=== PATIENT | female | born 1980 | race Caucasian/White ===

== ENCOUNTER 2025-04-12 14:55 | Outpatient (CLI) | payer OTHER, SELFPAY ==
--- NOTE | ~2025-04-12 | MM_ITS ---
EXAMINATION: MM screening denise BI w nic HISTORY: Screening TECHNIQUE: Craniocaudal and mediolateral oblique 3-D tomosynthesis images were obtained and synthetic 2-D images were generated. CAD analysis was submitted and interpreted. COMPARISON: No prior mammogram is available for comparison at this institution. BREAST PARENCHYMAL COMPOSITION: Dense: The breasts are extremely dense, which lowers the sensitivity of mammography. FINDINGS: There is no evidence of suspicious mass, calcification, or architectural distortion to sugg est malignancy in either breast. There has been no suspicious interval change. IMPRESSION: 1. No mammographic evidence of malignancy. 2. Recommend routine screening mammography in one year. BI-RADS Category 1: Negative Reviewed, dictated and finalized at location B.
--- OUTSIDE RECORDS SUMMARY | 2025-04-12 14:59 | XMS_ITS | Clinical Summary ---
Author Organization [facility] Address [address] [place] [address] Care Team Providers Care Ict Business Analyst Name Role Phone Unavailable Primary Care Provider Unavailabl e Social History Tobacco Use Types Packs/Day Years Used Date Smoking Tobacco: Never Assessed Comments Unknown Sex and Gender Information Value Date Recorded Sex Assigned at Not on file Legal Sex Female 10:32 AM [facility] Gender Identity Not on file Sexual Orientation Not on file Plan of Treatment Not on file Insurance [employer]
--- OUTSIDE RECORDS SUMMARY | 2025-04-12 14:59 | XMS_ITS | Encounter Summary ---
Author Organization [facility] Address [address] [place] [address] Care Team Providers Care Spot Man Name Role Phone Unavailable Primary Care Provider Unavailabl e Encounter Details Date Type Department Care Team (Latest Contact Info) Description 08/16/2021 [facility] BIOMETRIC [facility] ADM Social History Tobacco Use Types Packs/Day Years Used Date Smoking Tobacco: Never Assessed Comments Unknown Sex and Gender Information Value Date Recorded Sex Assigned at Not on file Legal Sex Female 10:32 AM [facility] Gender Identity Not on file Sexual Orientation Not on file documented as of this encounter Plan of Treatment Not on file documented as of this encounter Visit Diagnoses Not on filedocumented in this encounter
--- OUTSIDE RECORDS SUMMARY | 2025-04-12 14:59 | XMS_ITS | Clinical Summary ---
Author Organization [facility] Medical [facility] 2 Address [address] [facility] [place] [address] Care Team Providers Care Structural Worker Name Role Phone Najma Gordon MD Primary Care Provider + Faviola Grant MD Unavailable Najma Perrin MD Unavailable [phone] Allergies No known active allergies Medications aspirin 81 mg tablet Take 1 tablet (81 mg total) by mouth nightly 8 Active diphenhydrAMINE (BENADRYL) 25 mg capsule Take 1 tablet/capsule (25 mg total) by mouth every 4 hours as needed 3 Active ibuprofen (ADVIL,MOTRIN) 600 mg tablet Take 1 tablet (600 mg total) by mouth every 6 hours as needed 3 Active loratadine (CLARITIN) 10 mg tabletIndicatio ns:Allergic Rhinitis Take 1 tablet (10 mg total) by mouth daily as needed for allergies seasonal Active triamcinolone (NASACORT) 55 mcg nasal inhaler daily Active Vuity 1.25 % drops ophthalmic solution 2 Active amoxicillin 500 mg tablet/capsule TAKE 4 CAPSULES BY MOUTH 1 HOUR BEFORE DENTAL APPOINTMENT 4 tablet/capsu le 4 Active Active Problems Problem Noted Date Diagnosed Date Nasolacrimal duct obstruction, acquired, 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 Trejo at age 27 years. TTE from 01/2024 with mild to moderate [place] and peak gradient=20 mm Hg. She is asymptomatic with a good functional capacity. Will continue routine monitoring with echocardiograms. Would like to do bi-annual echos due to trejo. Can reconsider at 1 year follow up. 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 Asymptomatic with a good functional capacity. Will continue routine monitoring with echocardiograms. Would like to do bi-annual echos due to trejo. Can reconsider at 1 year follow up. Encounters Date Type Department Care Team Description 03/11/2025 8:30 AM CDT Office Visit [facility] Cardiology [address] [facility] 8th [place] [address] [place] [address] Elier Cotto MD Nonrheumatic pulmonary valve stenosis (Primary Dx) from Last 3 Months Surgical History Surgery Date Site/Laterality Comments [place] REPLACEMENT PULMONARY VALVE 09/16/2007 - 09/15/2008 Pulmonary valve replacement [place] a 24-mm [place] [address] Trejo at age 27 years. BREAST LUMPECTOMY REFRACTIVE SURGERY Bilateral SECTION ASD REPAIR 09/16/2003 - 09/15/2004 EYE SURGERY 09/16/2014 - 09/15/2015 granular tissue removed from eye PULMONARY VALVE SURGERY 1978 - 09/15/1979 Pulmonary stenosis, RV outflow tract reconstruction with pericardial patch and pulmonary valvotomy at [facility] in 1978. LACRIMAL DUCT PROBING W/ DACRYOPLASTY 07/03/2022 Left DACRYOCYSTORHINOSTOMY (Left: Eye) Medical History Medical History Date Comments Atrial septal defect Atrial sept al defect - (Added by TW Conv) Congenital heart disease Mari syndrome Mari syndrome, pulmonary stenosis status post pulmonary homograft now 12 years out. Followed by [facility] cardiology Family History Medical History Relation Name Comments Heart disease Father Family history of cardiac disorder - (Added by TW Conv) Hypertension Father Family history of hypertension - (Added by TW Conv) Stent Father Family history of stent - (Added by TW Conv) Anesthesia problems Neg Hx Malig Hypertension Neg Hx Malig Hyperthermia Neg Hx Pseudochol deficiency Neg Hx Relation Name Status Comments Father Social History Tobacco Use Types Packs/Day Years Used Date Smoking Tobacco: Never Smokeless Tobacco: Never Tobacco Cessation:Counseling Given: Not Answered AUDIT-C Answer Date Recorded Q1: How often do you have a drink containing alc ohol? Monthly or less 06/18/2022 Q2: How many drinks containi ng alcohol do you have on a typical day when you are drinking? 1 or 2 06/18/2022 Q3: How often do you have si x or more drinks on one occasion? Never 06/18/2022 Comments No Sex and Gender Information Value Date Recorded Sex Assigned at Not on file Legal Sex Female 11:56 AM AUTHORIZATION MANAGER Gender Identity Not on file Sexual Orientation Not on file Obstetrics History Last Filed Vital Signs Vital Sign Reading Time Taken Comments Blood Pressure 113/70 03/11/2025 8:23 AM CDT Pulse 68 03/11/2025 8:23 AM CDT Temperature 36.6 C (97.9 F) 07/03/2022 8:50 AM CDT Respiratory Rate 20 07/03/2022 9:10 AM CDT Oxygen Saturation 100% 03/11/2025 8:23 AM CDT Inhaled Oxygen Concentration - - Weight 58.4 kg (128 lb 12.8 oz) 03/11/2025 8:23 AM CDT Height 157.5 cm (5' 2) 03/11/2025 8:23 AM CDT Body Mass Index 23.56 03/11/2025 8:23 AM CDT Plan of Treatment Health Maintenance Due Date Last Done Comments Breast Cancer Screening-Mammogram 1978 Colon Cancer Screening-Colonoscopy 1978 Depression Screening 1978 Hepatitis C Screening 1978 Hepatitis B Screening 1996 Regular Well Visit/Exam 18-64 1996 Covid-19 Vaccine ( season) 2024 02/14/2022, 06/14/2021, 11/29/2020, Additional history exists Influenza Vaccine (#1) 2025 3, 08/23/2022, 06/22/2020, Additional history exists DTaP/Tdap/Td Vaccine (4 - Td or Tdap) 11/30/2029 12/01/2019, 07/30/2013, 09/01/2010 Pneumococcal vaccine <65 Aged Out 07/30/2013 No longer eligible based on patient's age to complete this topic HPV Vaccines Aged Out No longer eligi ble based on patient's age to complete this topic Insurance [employer] OPEN ACCESS [employer] ACCESS [employer] OPEN ACCESS Care Teams Structural Worker Relationship Specialty Start Date End Date Najma Gordon MD [address] [place] [id number] PCP - General Family Medicine 06/11/22 Faviola Grant MD [address] [address] Nurse Practitioner Cardiology 06/11/22 Najma Perrin MD [address] [place] [address] Referring Physician Ophthalmology 06/11/22
--- OUTSIDE RECORDS SUMMARY | 2025-04-12 14:59 | XMS_ITS | Encounter Summary ---
Author Organization [facility] Address [address] [place] [address] Care Team Providers Care Sweatband Flanger Name Role Phone Unavailable Primary Care Provider Unavailabl e Encounter Details Date Type Department Care Team (Latest Contact Info) Description 09/18/2021 [facility] BIOMETRIC [facility] ADM Social History Tobacco Use Types Packs/Day Years Used Date Smoking Tobacco: Never Assessed Comments Unknown Sex and Gender Information Value Date Recorded Sex Assigned at Not on file Legal Sex Female 10:32 AM [facility] Gender Identity Not on file Sexual Orientation Not on file documented as of this encounter Plan of Treatment Not on file documented as of this encounter Visit Diagnoses Not on filedocumented in this encounter
--- OUTSIDE RECORDS SUMMARY | 2025-04-12 14:59 | XMS_ITS | Encounter Summary ---
Author Organization [facility] Address [address] [place] [id number] Care Team Providers Care Coat Room Attendant Name Role Phone Kayden Burns DO Primary Care Provider + Encounter Details Date Type Department Care Team (Late st Contact Info) Description 05/14/2024 MyChart Message Enc [facility] Medical Group Family & Internal Medicine [address] [phone] Kayden Burns DO [facility] [place] [address] Possible sinus infection Social History Tobacco Use Types Packs/Day Years Used Date Smoking Tobacco: Never Smokeless Tobacco: Never Alcohol Use Standard Drinks/Week Comments Yes 0 (1 standard drink = 0.6 oz pur e alcohol) socially PHQ-2 Answer Date Recorded Patient Health Questionnaire-2 Score 0 12/09/2023 Comments No Sex and Gender Information Value Date Recorded Sex Assigned at Female 12/14/2024 7:57 AM CDT Legal Sex Female 8:24 PM CDT Gender Identity Female 12/14/2024 7:57 AM CDT Sexual Orientation Not on file Occupation Industry Job Start Date Job End Date Not on file Not on file Not on file Not on file documented as of this encounter Progress Notes * BENJAMIN Cadet - 05/14/2024 10:29 AM CDT How long has she had symptoms? If it has been just a few days---like less than a week, most likely not a sinus infection---and would prefer she treat over the counter. gracia Keys, Dayquil and increased water intake in addition to sinus rinses. * RT BisiR - 05/14/2024 9:31 AM CDTFrom: Sol Galindo To: Dr. Kayden Burns Sent: 05/14/2024 9:00 AM CDT Subject: Possible sinus infection Hi There! I think I may have a sinus infection. I have pressure in my cheek bones and forehead and when I bend over I get the spinning dizzy feeling. Not sure if you would need me to come in or if I need antibiotics. I did check my BP to make sure it wasn???t low and it was 109/63 and pulse is 62. documented in this encounter Plan of Treatment Not on file documented as of this encounter Visit Diagnoses Not on filedocumented in this encounter Care Teams Coat Room Attendant Relationship Specialty Start Date End Date Kayden Burns DO [address] [place] [address] PCP - General FAMILY PRACTICE 12/09/23 documented as of this encounter
--- OUTSIDE RECORDS SUMMARY | 2025-04-12 14:59 | XMS_ITS | Referral Summary ---
Author Organization [facility] Medical [facility] [address] [facility] [place] [address] Care Team Providers Care Loader Operator Supervisor Name Role Phone Najma Gordon MD Primary Care Provider + Faviola Grant MD Unavailable Najma Perrin MD Unavailable [phone] Encounters Date Type Department Care Team Description 03/11/2025 8:30 AM CDT Office Visit [facility] Cardiology [facility] Medicine 8th [place] [address] [place] [address] Elier Cotto MD Nonrheumatic pulmonary valve stenosis (Primary Dx) from Last 3 Months Allergies No known active allergies Medications aspirin [...] TTE from 01/2024 with mild to moderate [place] and peak gradient=20 mm Hg. She is asymptomatic with a good functional capacity. Will continue routine monitoring with echocardiograms. Would like to do bi-annual echos due to trejo. Can reconsider at 1 year follow up. 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 Asymptomatic with a good functional capacity. Will continue routine monitoring with echocardiograms. Would like to do bi-annual echos due to trejo. Can reconsider at 1 year follow up. Social History Tobacco Use Types Packs/Day Years [...] on file Legal Sex Female 11:56 AM BEAUTY OPERATOR APPRENTICE Gender Identity Not on file Sexual Orientation Not on file Last Filed Vital Signs Vital Sign Reading Time Taken Comments Blood Pressure 113/70 03/11/2025 8:23 AM CDT Pulse 68 03/11/2025 8:23 AM CDT Temperature 36.6 C (97.9 F) 07/03/2022 8:50 AM CDT Respiratory Rate 20 07/03/2022 9:1 0 AM CDT Oxygen Saturation 100% 03/11/2025 8:23 AM CDT Inhaled Oxygen Concentration - - Weight 58.4 kg (128 lb 12.8 oz) 03/11/2025 8:23 AM CDT Height 157.5 cm (5' 2) 03/11/2025 8:23 AM CDT Body Mass Index 23.56 03/11/2025 8:23 AM CDT Plan of Treatment Not on file Insurance [employer] OPEN ACCESS [employer] OPEN ACCESS [facility] Care Teams Loader Operator Supervisor Relationship Specialty Start Date End Date Najma Gordon MD [address] [place] [address] [place] [address] PCP - General Family Medicine 06/11/22 Faviola Grant MD [address] [address] Profile Saw Operator Cardiology 06/11/22 Najma Perrin MD [address] [place] [address] Referring Physician Ophthalmology 06/11/22
--- OUTSIDE RECORDS SUMMARY | 2025-04-12 14:59 | XMS_ITS | Clinical Summary ---
Author Organization [facility] Address [facility] [place] [address] Care Team Providers Care Causticiser Name Role Phone Kayden Burns DO Primary Care Provider + Allergies No known active allergies Medications aspirin 81 MG chewable tablet Chew 1 tablet (81 mg total) by mouth daily. Active loratadine (CLARITIN) 10 MG tablet Take 1 tablet (10 mg total) by mouth. Active VUITY 1.25 % Solution INSTILL 1 DROP IN BOTH EYES EVERY DAY 02/12/2023 Active triamcinolone acetonide (NASACORT) 55 MCG/ACT nasal inhaler 1 spray by Each Nostril route daily. Active valACYclovir (VALTREX) 500 MG tablet Take 1 tablet (500 mg total) by mouth daily. Active amoxicillin (AMOXIL) 500 MG capsule Take 4 capsules (2,000 mg total) by mouth once. 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7 Pt with ASD repair 2006 and cadaveric pulmonic valve replacement 2007 Infundibular pulmonic stenosis (HHS/HCC) 009 Resolved Problems Problem Noted Date Diagnosed Date Resolved Date Nasolacrimal duct obstruction, acquired, left 06/11/20 22 12/09/2023 Uterine adhesions 06/22/2013 12/09/2023 Overview (12/09/2023): Noted at G2 c/s Placenta previa ([facility] 06/19/2013 Overview (12/09/2023): Complete anterior previa last seen 06/01 in [facility] Immunizations Immunization Administration Dates Next Due Influenza (Generic) 06/20/2013 Influenza Adult (Generic) 06/17/2023,08/23/2022, 06/22/2020 PFIZER COVID-19 (12+) MRNA, LNP-S, PF, BUTCH-SUCROSE, 30 MCG/0.3 ML (COMIRNATY) 12/14/2024 PFIZER COVID-19 (ORIGINAL FO RMULATION, PURPLE CAP) mRNA, LNP-S, PF, 30 MCG/0.3 ML DOSE 06/14/2021 Pneumococcal (Pneumovax 23) 07/30/2013 Pneumococcal (Prevnar 20) 12/14/2024 Tdap (Generic) 12/01/2019,07/30/2013,09/01/2010 Family History Medical History Relation Comments Diabetes Father Sick sinus syndrome Mother Relation Status Comments Father Mother Social History Tobacco Use Types Packs/Day Years Used Date Smoking Tobacco: Never Smokeless Tobacco: Never Tobacco Cessation:Counseling Given: No Alcohol Use Standard Drinks/Week Comments Yes 0 (1 standard drink = 0.6 oz pur e alcohol) socially PHQ-2 Answer Date Recorded Patient Health Questionnaire-2 Score 0 12/14/2024 Comments No Sex and Gender Information Value Date Recorded Sex Assigned at Female 12/14/2024 7:57 AM CDT Legal Sex Female 8:24 PM CDT Gender Identity Female 12/14/2024 7:57 AM CDT Sexual Orientation Not on file Occupation Industry Job Start Date Job End Date Not on file Not on file Not on file Not on file Last Filed Vital Signs Vital Sign Reading Time Taken Comments Blood Pressure 118/62 12/14/2024 8:03 AM CDT Pulse 63 12/14/2024 8:03 AM CDT Temperature 36.8 C (98.2 F) 12/14/2024 8:03 AM CDT Respiratory Rate 16 12/14/2024 8:03 AM CDT Oxygen Saturation 98% 12/14/2024 8:03 AM CDT Inhaled Oxygen Concentration - - Weight 57.9 kg (127 lb 11.2 oz) 12/14/2024 8:03 AM CDT Height 158.8 cm (5' 2.5) 12/14/2024 8:03 AM CDT Body Mass Index 22.98 12/14/2024 8:03 AM CDT Plan of Treatment Health Maintenance Due Date Last Done Comments Hepatitis B Vaccines (1 of 3 - 19+ 3-dose series) 1997 Mammogram Screening 2018 Annual Physical 12/14/2025 12/14/2024, 12/09/2023 Colorectal Cancer Screening FIT-DNA (3 Years) 12/23/2026 12/24/2023, 12/24/2023 DTaP, Tdap and Td Vaccines (4 - Td or Tdap) 11/30/2029 12/01/2019, 07/30/2013, 09/01/2010 Hepatitis C Completed 12/19/2023, 12/09/2023 COVID-19 Vaccine Completed 12/14/2024, 10/2022, 08/23/2022, Additional history exists PHQ-2 (Physician Royal) Completed 12/14/2024 Pneumococcal Vaccine: Pediatrics (0 to 5 Years) and At-Risk Patients (6 to 49 Years) Completed 12/14/2024, 07/30/2013 Meningococcal B Vaccine Aged Out No l onger eligible based on patient's age to complete this topic Meningococcal Vaccine Aged Out No aleksandar zeke eligible based on patient's age to complete this topic RSV Immunizations Under 20 Months Aged Out No longer eligible based on patient's age to complete this topic Procedures Procedure Name Priority Date/Time Associated Diagnosis Comments REID (EXACT SCIENCE) Routine 12/24/2023 7:46 AM CDT Screening for malignant neoplasm of colon HEPATITIS C RNA W/ REFLX GENOTYPE Routine 12/19/2023 1:45 PM CDT Hepatitis C antibody positive in blood from Last 3 Months or Most Recently Relevant to Health Maintenance Results * COLOGUARD (EXACT SCIENCE) (12/24/2023 7:46 AM CDT) COLOGUARD RESULT Negative Negative [employer] (CLIA #:[id number]) Comment: NEGATIVE TEST RESULT. A negative Cologuard result indicates a low likelihood that a colorectal cancer (CRC) or advanced adenoma (adenomatous polyps with more advanced pre-malignant features) is present. The chance that a person with a negative Cologuard test has a colorectal cancer is less than 1 in 1500 (negative predictive value >99.9%) or has an advanced adenoma is less than 5.3% (negative predictive value 94.7%). These data are based on a prospective cross-sectional study of 10,000 individuals at average risk for colorectal cancer who were screened with both Cologuard and colonoscopy. (Cora Hennessy al, N Engl J Med 2014;370(14):5128-3569) The normal value (reference range) for this assay is negative. COLOGUARD RE-SCREENING RECOMMENDATION: Periodic colorectal cancer screening is an important part of preventive healthcare for asymptomatic individuals at average risk for colorectal cancer. Following a negative Cologuard result, the [place] Cancer Society and U.S. Multi-Society Task Force screening guidelines recommend a Cologuard re-screening interval of 3 years. References: [place] [employer] Society Guideline for Colorectal Cancer Screening: https://www.cancer.org/cancer/zghpx-obmdsa-hsrbbh/fhgghxoug-vyzcsdioj-jngutln/ac s-rec ommendations.html.; Kuldeep ALBERTO, [place] CR, Joseph NguyenK, Colorectal Cancer Screening: Recommendations for Physicians and Patients from the U.S. Multi-Society Task Force on Colorectal Cancer Screening , Am J Gastroenterology 2017; 112:8690-5126. TEST DESCRIPTION: Composite algorithmic analysis of stool DNA-biomarkers with hemoglobin immunoassay. Quantitative values of individual biomarkers are not reportable and are not associated with individual biomarker result reference ranges. Cologuard is intended for colorectal cancer screening of adults of either sex, 45 years or older, who are at average-risk for colorectal cancer (CRC). Cologuard has been approved for use by the U.S. FDA. The performance of Cologuard was established in a cross sectional study of average-risk adults aged 50-84. Cologuard performance in patients ages 45 to 49 years was estimated by sub-group analysis of near-age groups. Colonoscopies performed for a positive result may find as the most clinically significant lesion: colorectal cancer [4.0%], advanced adenoma (including sessile serrated polyps greater than or equal to 1cm diameter) [20%] or non- advanced adenoma [31%]; or no colorectal neoplasia [45%]. These estimates are derived from a prospective cross-sectional screening study of 10,000 individuals at average risk for colorectal cancer who were screened with both Cologuard and colonoscopy. (Cora Hennessy al, N Engl J Med 2014;370(14):1466-7103.) Cologuard may produce a false negative or false positive result (no colorectal cancer or precancerous polyp present at colonoscopy follow up). A negative Cologuard test result does not guarantee the absence of CRC or advanced adenoma (pre-cancer). The current Cologuard screening interval is every 3 years. ([employer] Cancer Society and U.S. Multi-Society Task Force). Cologuard performance data in a 10,000 patient pivotal study using colonoscopy as the reference method can be accessed at the following location: www.[employer]/results. Additional description of the Cologuard test process, warnings and precautions can be found at www.cologuard.com. STOOL STOOL SPECIMEN / Unknown 12/24/2023 7:46 AM CDT 12/26/2023 9:55 AM CDT us Kayden Burns DO BODY FLUIDS AND STOOLS O RDERABLES Final Result [employer] ([facility]) [address] [place] [address], [employer] (CLIA #:[id number]) [address] [place] [address] * HEPATITIS C RNA W/ REFLX GENOTYPE (12/19/2023 1:45 PM CDT) HEPATITIS C RNA PCR QNT <15 NOT DETECTED IU/mL [facility] RNA PCR QNT <1.18 NOT DETECTED LogIU/mL [facility] Comment: REFERENCE RANGE: NOT DETECTED IU/mL NOT DETECTED Log IU/mL This test was performed using Real-Time Polymerase Chain Reaction Reportable range is 15 to 100,000,000 IU/mL (1.18-8.00 Log IU/mL). The analytical performance characteristics of this assay have been determined by [employer]. The modifications have not been cleared or approved by the FDA. This assay has been validated pursuant to the CLIA regulations and is used for clinical purposes. For additional information, please refer to http://education.[employer]/faq/DKL89g3 (This link is being provided for informational/ educational purposes only.) 12/19/2023 1:45 PM CDT 12/21/2023 3:26 AM CDT Narrative Resulting Agency Comment Performing Organization Information: Site ID: [id number] Name: [facility], Address: [address] [place] [phone] Director: Aster Bocanegra MD,PhD,LUIS ANTONIO Kayden Burns DO LABORATORY Final Re sult [facility] [address] [address], from Last 3 Months or Most Recently Relevant to Health Maintenance Insurance [employer] Care Teams Causticiser Relationship Specialty Start Date End Date Kayden Burns DO [address] [place] [phone] PCP - General FAMILY PRACTICE 12/09/23
--- OUTSIDE RECORDS SUMMARY | 2025-04-12 14:59 | XMS_ITS | Encounter Summary ---
Author Organization [facility] Address [address] [place] [address] Care Team Providers Care Gem Expert Name Role Phone Unavailable Primary Care Provider Unavailabl e Encounter Details Date Type Department Care Team (Latest Contact Info) Description 08/07/[address] [facility] BIOMETRIC [place] ADM Social History Tobacco Use Types Packs/Day Years Used Date Smoking Tobacco: Never Assessed Comments Unknown Sex and Gender Information Value Date Recorded Sex Assigned at Not on file Legal Sex Female 10:32 AM [facility] Gender Identity Not on file Sexual Orientation Not on file documented as of this encounter Plan of Treatment Not on file documented as of this encounter Visit Diagnoses Not on filedocumented in this encounter
--- OUTSIDE RECORDS SUMMARY | 2025-04-12 14:59 | XMS_ITS | Clinical Summary ---
Author Organization [facility] Address [address] [place] [address] Care Team Providers Care Supply Chain Vice President Name Role Phone Andreas Rehman MD Primary Care Provider [phone] Source Comments [facility],non-owned Affiliates and Associated Physician Practices is amultiple site organization consisting of ambulatory clinics and hospital sitesin [place], [place], [place] and [place]. This disclosure is being madepursuant to the Care Everywhere program and may not contain all information available regarding this patient. Last updated 18.[facility] Allergies No known active allergies Medications * Be aware that medications may not be up to date on this document. Alwaysverify current medications with the patient. aspirin 81 MG chew tablet Take 81 mg by mouth daily. Active buPROPion XL 24hr (WELLBUTRIN XL) 150 MG tablet Take 150 mg by mouth once daily. Active Vit-Fe Fumarate-FA ( FA PO) Take by mouth once daily. Active valACYclovir (VALTREX) 500 MG tabletIndications:H erpes Simplex Infection Take 500 mg by mouth once daily. Indications: Herpes Simplex Infection Active docusate sodium (COLACE) 100 MG capsule Take 1 Cap by mouth 2 times daily as needed for Constipation. 30 Cap 0 2 Active NIFEdipine (PROCARDIA) 20 MG capsule Take 1 Cap by mouth every 4 hours. 120 Cap 2 3 Active docusate sodium (COLACE) 100 MG capsule Take 1 Cap by mouth once daily. 30 Cap 3 3 Active diphenhydrAMINE (BENADRYL) 25 MG capsule Take 1 Cap by mouth every 4 hours as needed for Itching. 120 Cap 2 3 Active hydrocortisone (HYTONE) 1 % ointment Apply to affected area 2 times daily. 30 g 1 3 Active iron polysaccharides (NIFEREX 150) 150 MG capsuleIndications: Placenta previa ([facility]),Supervision of high-risk of young primigravida ([facility]),H/O: ,[place] syndrome ([facility]),Status post patch closure of ASD,Pulmonary valve replaced,ASD (atrial septal defect) ([facility]),Depression Take 1 Cap by mouth 2 times daily,before breakfast and supper. 60 Cap 3 3 Active ranitidine (ZANTAC) 150 MG tablet Take 1 Tab by mouth 2 times daily. 60 Tab 5 3 Active oxycodone-acetamino phen (PERCOCET) 5-325 MG tablet Take 1 Tab by mouth every 6 hours as needed for Pain. 40 Tab 0 3 Active ibuprofen (MOTRIN) 600 MG tablet Take 1 Tab by mouth every 6 hours as needed for Pain. 60 Tab 1 3 Active docusate sodium (COLACE) 100 MG capsule Take 1 Cap by mouth 2 times daily. 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 Were not aware they were in the uterus until amniotomy Plan Dispatch Coordinator onc consult during section Supervision of high-risk 06/19/2013 Overview (06/19/2013): Dated by date of conception GCT 103 A+/I/-/-, NR Placenta previa 06/19/2013 Overview (06/19/2013): Complete anterior previa last seen 06/01 in 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 ASD repair 2006 and cadaveric pulmonic valve replacement 2007 Herpes simplex 08/17/2010 Overview (08/17/2010): Tx with valtrex x 1 yr in the past Pulmonary valve replaced Overview (12/21/2011): - cadaver valve ASD (atrial septal defect) Overview (12/21/2011): repaired in 2005 with amplacter device Depression Resolved Problems Problem Noted Date Diagnosed Date Resolved Date H/O: section 12/21/20112012 Overview (12/21/2011): NRFTH Doc LTCS HSV infection 12/21/2011 06/19/2013 Cystic Hydroma 12/21/2011 013 Polyhydramnios 11/19/2011 06/19/2013 Pulmonary valve disorder 11/19/201112/2012 GBS (group B Streptococcus c jamey), +RV culture, currently 08/23/2010 12/03/2011 Known or suspected anomaly, antepartum 0 12/03/2011 Overview (08/20/2010): Hydrops Suspected pulmonic stenosis Non-immune hydrops fetalis a ffecting care of mother, antepartum 08/20/2010 12/03/2011 Supervision of high-risk pre gnancy of young primigravida 08/17/2010 06/19/2013 Overview (12/21/2011): BOG/MFM Dating: L=11wk A+/I/-/-/, NR Abn GCT, nl GTT Ok to call Dr. Najera for delivery if patient requests: [phone] Polyhydramnios, maternal, antepartum 08/17/2010 12/03/2011 Overview (08/20/2010): S/p amnioreduction x 3. CLARA 36.7cm on 08/17 before 3rd reduction, 19.3 after at discharge 08/19 Other nonspecific abnormal finding 08/17/2010 12/21/2011 Overview (08/17/2010): S/p colpo and biopsy which were normal Immunizations Immunization Administration Dates Next Due INFLUENZA VACCINE 06/20/2013 PNEUMOCOCCAL PPSV23 07/30/2013 TDAP (7yrs+) 07/30/2013,09/01/2010 Family History Medical History Relation Name Comments Diabetes Father Hypertension Father CAD (Coronary Artery Disease) Maternal Grandfather Cancer Maternal Grandfather CAD (Coronary Artery Disease) Maternal Grandmother Relation Name Status Comments Father Maternal Grandfather Maternal Grandmother Social History Tobacco Use Types Packs/Day Years Used Date Smoking Tobacco: Never Smokeless Tobacco: Never Tobacco Cessation:Counseling Given: Yes Alcohol Use Standard Drinks/Week Comments No 0 (1 standard drink = 0.6 oz pur e alcohol) Comments No Sex and Gender Information Value Date Recorded Sex Assigned at Not on file Legal Sex Female 9:38 AM ATTENDANCE CLERK Gender Identity Not on file Sexual Orientation Not on file 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 Not on file Not on file Last Filed Vital Signs Vital Sign Reading Time Taken Comments Blood Pressure 104/66 12/28/2018 10:35 AM CDT Pulse 62 12/28/2018 10:35 AM CDT Temperature 36.6 C (97.9 F) 12/28/2018 10:35 AM CDT Respiratory Rate 17 12/28/2018 10:35 AM CDT Oxygen Saturation 97% 12/28/2018 10:35 AM CDT Inhaled Oxygen Concentration 40% 07/25/2013 8 :24 AM ATTENDANCE CLERK Weight 61.2 kg (135 lb) 12/28/2018 10:35 AM CDT Height 157.5 cm (5' 2) 12/28/2018 10:35 AM CDT Body Mass Index 24.69 12/28/2018 10:35 AM CDT Plan of Treatment Health Maintenance Due Date Last Done Comments COLOGUARD (AGES 45-75) - COL ON CA SCREENING 1978 COLON MONITORING 1978 COLONOSCOPY - COLON CA SCREENING 1978 CT COLONOGRAPHY - COLON CA SCREENING 1978 Colorectal Cancer Screening 1978 FIT - COLON CA SCREENING 1978 FLEX SIG - COLON CA SCREENING 1978 LIPID TESTING 1978 MAMMOGRAM 1978 HEPATITIS C SCREENING 10/07/1996 HEPATITIS B VACCINE (1 of 3 - 19+ 3-dose series) 1997 DTAP/TDAP/TD VACCINES (3 - T d or Tdap) 07/30/2023 07/30/2013, 09/01/2010 COVID-19 VACCINE ( - 2023-2 5 season) 2024 DEPRESSION SCREENING 09/16/2024 INFLUENZA VACCINE (#1) 2025 3, 07/09/2011 ZOSTER VACCINE (1 of 2) 2028 HIV SCREENING Completed 01/19/2013, 07/09/2011 PNEUMOCOCCAL VACCINE Aged Out 07/30/2013 No long er eligible based on patient's age to complete this topic HIB VACCINE Aged Out No longer eligi ble based on patient's age to complete this topic HPV VACCINE Aged Out No longer eligi ble based on patient's age to complete this topic MENINGOCOCCAL (Group B) VACCINE SHARED DECISION-MAKING Aged Out No longer eligible based on patient's age to complete this topic MENINGOCOCCAL GROUPS A/C/Y/W VACCINE Aged Out No longer eligible b ased on patient's age to complete this topic Medical Devices Implanted Type Area Fan Balancer Device Identifier Shelf Expiration Date Model / Serial / Lot Floseal 10ml Implanted:Qty: 1 on 07/25/2013 by Anna Potter MD at [facility] Abdomen 10/16/2015 [id number] / / [id number] Procedures Procedure Name Priority Date/Time Associated Diagnosis Comments HIV-1 HIV-2 ANTIBODIES W RFLX REFLEXED Routine 01/19/2013 10:01 AM CDT from Last 3 Months or Most Recently Relevant to Health Maintenance Results * HIV-1 HIV-2 ANTIBODIES W RFLX REFLEXED (01/19/2013 10:01 AM CDT) HIV 1/2 EIA Antibody NON-REACTI VE NON-REACT NA[facility]IA [facility] (U) Comment: A Nonreactive HIV-1/2 antibody result does not exclude HIV infection since the time frame for seroconversion is variable. If acute HIV infection is suspected, antibody retesting and nucleic acid amplification (HIV DNA/RNA) testing is recommended. Test Performed at: [facility] [address] [place] [address] JAHAIRA CALVIN DO,MPH Blood specimen (specimen) 01/19/2013 10:01 AM CDT 01/19/2013 10:01 AM CDT Narrative [facility] ([facility]) - 01/20/2013 7:00 PM CDT Preferred Lab:->[facility] Kaycee Nguyen MD LAB - CHEMISTRY ORDERABL ES Edited Result - Final VERA ([facility]) [id number] from Last 3 Months or Most Recently Relevant to Health Maintenance Insurance [facility] Advance Directives * FULL RESUSCITATION (Latest Code Status on File) Date Activated Date Inactivated Comments 07/25/2013 5:39 AM 07/30/2013 12:31 PM * FULL RESUSCITATION Date Activated Date Inactivated Comments 07/25/2013 12:44 AM 07/25/2013 5:39 AM * FULL RESUSCITATION Date Activated Date Inactivated Comments 07/06/2013 8:51 PM 07/25/2013 12:44 AM * FULL RESUSCITATION Date Activated Date Inactivated Comments 06/19/2013 9:10 PM 06/30/2013 4:22 PM * FULL RESUSCITATION Date Activated Date Inactivated Comments 12/21/2011 11:56 AM 12/25/2011 12:41 AM Care Teams Supply Chain Vice President Relationship Specialty Start Date End Date Andreas Rehman MD [address] [place] [address] PCP - General 12/22/11
--- OUTSIDE RECORDS SUMMARY | 2025-04-12 14:59 | XMS_ITS | Encounter Summary ---
Author Organization [facility] Address [address] [place] [address] Care Team Providers Care Pan Devulcanizer Name Role Phone Unavailable Primary Care Provider Unavailabl e Encounter Details Date Type Department Care Team (Latest Contact Info) Description 12/04/2021 [facility] BIOMETRIC [place] ADM Social History Tobacco Use Types Packs/Day Years Used Date Smoking Tobacco: Never Assessed Comments Unknown Sex and Gender Information Value Date Recorded Sex Assigned at Not on file Legal Sex Female 10:[address] [facility] Gender Identity Not on file Sexual Orientation Not on file documented as of this encounter Plan of Treatment Not on file documented as of this encounter Visit Diagnoses Not on filedocumented in this encounter
== END 2025-04-12 14:56 | disposition home or self-care (01) ==
LOC: CHSIMG 14:57
PROVIDERS: PCP Student in an Organized Health Care Education/Training Program; Visit Provider Student in an Organized Health Care Education/Training Program
DX: Z12.31 Encounter for screening mammogram for malignant neoplasm of breast (principal)
CPT/HCPCS: 77063; 77067